=== PATIENT | female | born 1990 | race Caucasian/White ===

== ENCOUNTER 2024-03-16 07:06 | Outpatient (CLI) | payer BC, SELFPAY ==
--- NOTE | 2024-03-16 07:15 | US_ITS ---
Patient: ROSELINE CANNON Facility:?[facility] Patient ID:?[id number] Site Patient ID:?[id number]. Site :?1990 Study:?US-OB Pelvis DATING AND VIABILITY-03/16/2024 7:46:09 AM Ordering Physician:SHADE FISCHER Final Report: INDICATION: First trimester scan, establish dates. COMPARISON: None. TECHNIQUE: Real-time hylton-scale imaging of the pelvis was performed. FINDINGS: Sonographic imaging demonstrates a single living intrauterine gestation. The embryo demonstrates a regular cardiac rate measuring 171 beats per minute. The embryo`s crown-rump length measurement of 2.7 cm corresponds to a gestational age of 9 weeks 3 days with a sonographic due date of 10/16/2024. The yolk sac is upper limits of normal measuring 5.7 millimeters. There are no gross abnormalities noted within the embryo at this early state of development. The gestational sac has a normal appearance. There is no evidence of a perigestational hemorrhage. The amount of fluid within the sac appears appropriate for gestational age. The cervix is closed. Lower uterine segment uterine fibroid is present measuring 2.1 x 1.5 x 1.9 cm. Corpus luteal cyst left ovary. Normal right ovary. There are no suspicious fluid collections noted in the cul-de-sac. IMPRESSION: Single living intrauterine with sonographic gestational age 9 weeks 3 days and sonographic due date of 10/16/2024. The yolk sac measures 5.7 millimeters. Short-term follow-up could be considered. Lower uterine segment uterine fibroid measuring 2.1 cm. Dictated by Jan Jeffries MD @ 03/16/2024 9:06:09 AM Signed by:?Jan Jeffries MD @03/16/2024 9:06:09 AM (Electronic Signature)
== END 2024-03-16 07:07 | disposition home or self-care (01) ==
LOC: US 07:09
PROVIDERS: PCP Obstetrics & Gynecology; Visit Provider Advanced Practice Midwife
DX: Z34.91 Encounter for supervision of normal pregnancy, unspecified, first trimester (principal); O34.11 Maternal care for benign tumor of corpus uteri, first trimester; Z3A.09 9 weeks gestation of pregnancy
CPT/HCPCS: 76817; 86592; 86703; 86704; 86706; 86762; 86787; 86803; 86850; 86900; 86901; 87086; 87340

== ENCOUNTER 2024-04-04 13:56 | Outpatient (CLI) | payer BC, SELFPAY ==
--- NOTE | 2024-04-04 14:00 | US_ITS ---
Patient: ROSELINE CANNON Facility:?[facility] Patient ID:?[id number] Site Patient ID:?[id number]. Site :?1990 Study:?US-OB Pelvis OB <14wks-04/04/2024 3:01:27 PM Ordering Physician:?Brenna De La Rosa Final Report: INDICATION: : History of enlarged yolk sac. Confirm viability and dates TECHNIQUE: Transabdominal scanning was performed. COMPARISON: 03/16/2024 FINDINGS: There is a living IUP with gestational age of 11 weeks 6 days by LMP and 12 weeks 4 days by today`s crown-rump length. EDC based on LMP is 10/18/2024. The embryonic heart rate is measured at 167 beats per minute. The placenta is not yet formed. No subchorionic hemorrhage is evident. The ovaries are normal is size and shape. The right ovary measures 2.5 x 2.3 x 1.9 cm and the left 3.3 x 2.3 x 1.5 cm. No adnexal mass or free fluid is apparent. IMPRESSION: 1. Living IUP with gestational age of 11 weeks 6 days by LMP and 12 weeks 4 days by today`s crown-rump length. EDC based on LMP is 10/18/2024. 2. No complication evident. Dictated by Joe Pedraza MD @ 04/05/2024 11:24:35 AM Signed by:?Joe Pedraza MD @04/05/2024 11:24:35 AM (Electronic Signature)
== END 2024-04-04 13:57 | disposition home or self-care (01) ==
LOC: US 13:56
PROVIDERS: Visit Provider Advanced Practice Midwife
DX: O41.8X10 Other specified disorders of amniotic fluid and membranes, first trimester, not applicable or unspecified (principal); Z3A.11 11 weeks gestation of pregnancy
CPT/HCPCS: 76801

== ENCOUNTER 2024-05-04 09:26 | Outpatient (CLI) | payer BC, SELFPAY ==
--- NOTE | 2024-05-04 09:30 | CRLHL7_ITS ---
For Patients: As a result of the Century Cures Act, medical imaging exams and procedure reports are released immediately into your electronic medical record. You may view this report before your referring provider. If you have questions, please contact your health care provider. Indication: No heart tones. Technique: Sonography of the pelvis was performed. The study was performed transabdominally. Comparison: April 04, 2024 Findings: A living was documented April 04 11/30/2023 at 12 weeks and 4 days. On the current study, there is an irregular gestational sac. A non living fetus is identified within the uterus. No hemorrhage identified. The os appears to be closed as visualized. The placenta is posterior Current biometry is 14 weeks and 1 day Impression: A non living intrauterine fetus is identified. Measurements are at 14 weeks and 1 day. Dictated by Cullen Arango MD @ 05/04/2024 10:02:41 AM (Electronically Signed)
== END 2024-05-04 09:27 | disposition home or self-care (01) ==
LOC: US 09:26
PROVIDERS: Visit Provider Advanced Practice Midwife
DX: O36.8310 Maternal care for abnormalities of the fetal heart rate or rhythm, first trimester, not applicable or unspecified (principal); O02.1 Missed abortion
CPT/HCPCS: 76815

== ENCOUNTER 2024-05-05 12:54 | Inpatient (IN) | payer BC, SELFPAY ==
[2024-05-05] VITALS (7 sets, daily range): BP systolic 103–134; BP diastolic 56–72; PULSE 72–90; RESP 12–16; TEMP 36.9–37.2; O2SAT 100; BMI 29.7
--- NOTE | 2024-05-05 13:34 | PM.OBHPAP1 ---
OB - H&P; HPI Antepartum History of Present Illness Date Seen: 05/05/24 Chief complaint: Maternity Narrative: Sravanthi Rowland is a 33 year old at 16 2/7 weeks gestation by LMP consistent with 1st trimester US who presents for intrauterine demise diagnosed in clinic yesterday. She is supported today by her , Colby. Sravanthi presented for her routine obstetrical appointments and FHR were not found by doppler. She has not had any bleeding or cramping in the last few weeks. Patient was sent for formal ultrasound where radiology reported no heart tones were identified. Patient previously had two 1st trimester US where fetus was reported as viable with cardiac activity present. Her first ultrasound showed a slightly enlarged yolk sak, however a follow-up ultrasound showed normal findings. Yesterday's radiology report estimates size consistent with 14 weeks 1 day. No identifiable abnormalities noted on ultrasound. These findings were discussed with the patient yesterday by ORLANDO Duran. Options were reviewed with her at this time of IOL or D&E procedure. She elected to go home to discuss further with her partner but had set up an IOL for today. She called this morning wanting to review her options and how an IOL would work. This was reviewed with her via telephone including risks/benefits. She elected to proceed with IOL today. She had to find care for her older children then arrived earlier this afternoon. We discussed using cytotec for IOL due to being less than 28 weeks. She had some questions regarding previous c/s and use of cytotec. Discussed that cytotec at the gestation less than 28 weeks for 2nd trimester loss is consider a safe option with risk of uterine rupture extremely low. Discussed labs to determine possible etiology of IUFD with patient and spouse. These include TSH, Free T4, toxoplasmosis, rubella, CMV, herpes serology, chromosome/cytology on patient, Kleihauer Betke, and listeria. Reviewed options for pain management during this process. She is undecided but very nervous about pain management and epidural. She is aware she has multiple options if she desires. Sravanthi's past medical, surgical, social and family history was reviewed. Specific Issues/Plans : Colby -AMA, age 34 at -level II wants -81 mg aspirin at 12 weeks -Hx of anxiety -stable at NOB -did not do well w/ citalopram previously. Stopped medications about 6 years ago. Has also previously done therapy -Lower uterine segment uterine fibroid measuring 2.1 cm noted in viability u/s. Yolk sac mildly enlarged also, has follow up u/s scheduled. Follow up: Yolk sac upper limits of normal -Hx of w/ twins, 1 successful . Desires another -consult with OB: -36 wk Growth u/s: -Hx of GDM with twin -Needs PP pap. Last pap 2021, Ascus, HPV neg ?? History of Present Dating criteria: based on LMP care: good care Ultrasounds: abnormal US findings Abnormal ultrasound findings: 03/16/2024 IMPRESSION: Single living intrauterine with sonographic gestational age 9 weeks 3 days and sonographic due date of 10/16/2024. The yolk sac measures 5.7 millimeters. Short-term follow-up could be considered. Lower uterine segment uterine fibroid measuring 2.1 cm. Dictated by Jan Jeffries MD @ 03/16/2024 9:06:09 AM 04/04/2024 IMPRESSION: 1. Living IUP with gestational age of 11 weeks 6 days by LMP and 12 weeks 4 days by today`s crown-rump length. EDC based on LMP is 10/18/2024. 2. No complication evident. 05/04/2024 Findings: A living was documented April 04 11/30/2023 at 12 weeks and 4 days. On the current study, there is an irregular gestational sac. A non living fetus is identified within the uterus. No hemorrhage identified. The os appears to be closed as visualized. The placenta is posterior Current biometry is 14 weeks and 1 day Impression: A non living intrauterine fetus is identified. Measurements are at 14 weeks and 1 day. Dictated by Cullen Arango MD @ 05/04/2024 10:02:41 AM Medical complications: none Labs Blood type: A (+) positive Review of Systems Status of ROS: Reports: 10 or more systems reviewed and unremarkable except as noted in History and below Meds Home Medications and Allergies Home Medications ?Medication ?Instructions ?Recorded ?Confirmed ?Type vits no.126-ferrous fum 1 tab PO DAILY 04/04/24 05/05/24 History 28 mg iron-folic acid 800 mcg tablet (Classic ) aspirin 81 mg chewable tablet 81 mg PO QDAY 05/04/24 05/05/24 History Allergies Allergy/AdvReac Type Severity Reaction Status Date / Time citalopram AdvReac Unknown Unknown Verified 05/05/24 15:30 OB - H&P: Exam Physical Exam: Vital signs: Pulse BP 90 134/72 05/05/24 13:34 05/05/24 13:34 Narrative: Vitals Reviewed Constitutional:? Alert and oriented x3. Psych: Mood appropriate, tearful HEENT:? Normocephalic, atraumatic Neck:? Supple Lungs:? Clear to auscultation bilaterally Heart:? Regular rate and rhythm, no murmur, rub or gallop Abdomen:? Soft, nontender, and gravid. Fundal height 15 cm. Extremities:? No edema or erythema Cervix: 0 cm, cytotec placed with exam OB - A/P Antepartum Assessment and Plan (1) demise before 20 weeks with retention of fetus: Status: Acute Plan ASSESSMENT:? 33 at 16.2 weeks gestation? IUFD, measuring 14.1 weeks gestation ? PLAN:? 1. Cytotec 400 mg vaginally every 4 hours. 2. Candidate for analgesia of choice if desired.?? 3. Laboratory testing to determine possible etiology ordered as patient desired. 4. Offered autopsy and genetic testing of the baby to patient: Undecided 5. Plan pitocin after delivery to help with delivery of placenta and hemorrhage risk. 6. Dr. Lawson notified and aware of plan.
[2024-05-05] MEDS: miSOPROStoL 200 MCG TABLET 400 MCG VAGINAL ×3 (14:58→21:12)
[2024-05-05 15:38] LABS: Basophils Percent Auto 0.2 % (0.0-3.0); Hematocrit 37.2 % (33.0-51.0); Hemoglobin* 12.7 gm/dL (12.0-16.0); Immature Granulocytes Pct Auto 0.8 %; Lymphocytes Percent Auto 19.5 % (20-44); Mean Corpuscular HGB Conc 34 gm/dL (32-36); Mean Corpuscular Hemoglobin 30 pg (26-34); Mean Corpuscular Volume 88 fL (80-100); Monocytes Percent Auto 5.9 % (0.0-11.0); Neutrophils Percent Auto 72.6 % (42.0-72.0); Platelet Count* 259 K/uL (140-440); RDW Coefficient of Variation % 12.2 % (11.5-15.5); Red Blood Count 4.25 m/uL (4.00-5.20); White Blood Count* 11.71 K/uL (4.50-11.00)
[2024-05-05 15:41] LABS: Slide Review Reflex No
[2024-05-05 15:49] LABS: Amphetamine Screen Urine Negative (Negative); Barbiturate Screen Urine Negative (Negative); Benzodiazepines Screen Urine Negative (Negative); Cannabinoid Screen Urine Negative (Negative); Cocaine Screen Urine Negative (Negative); Methadone Screen Urine Negative (Negative); Methamphetamines Screen Urine Negative (Negative); Opiate Screen Urine Negative (Negative); Oxycodone Screen Urine Negative (Negative); Phencyclidine Screen Urine Negative (Negative); Tricyclic Antidepressant Urine Negative (Negative)
[2024-05-05 15:52] LABS: Fibrinogen* 439 mg/dL (200-450)
[2024-05-05 15:53] LABS: Partial Thromboplastin Time* 26 Seconds (23-33); Prothrombin Time 12.7 Seconds
[2024-05-05 16:30] LABS: Free T4 Free Thyroxine* 0.81 ng/dL (0.70-1.85)
--- NOTE | 2024-05-05 21:15 | PM.OBPNL ---
Subjective Date Seen: 05/05/24 Narrative: Sravanthi is a here for IOL for IUFD diagnosed yesterday in clinic. She has received 3 doses of cytotec and is starting to feel cramping. She is supported by her partner, Colby. She does not desire anything for pain management at this time. Objective Vital Signs: Last Vital Signs Temp 99 F 05/05/24 19:02 Pulse 73 05/05/24 21:15 Resp 16 05/05/24 19:02 BP 113/66 05/05/24 21:15 Pulse Ox 100 05/05/24 13:35 Plan Plan: ASSESSMENT:? 33 at 16.2 weeks gestation? IUFD, measuring 14.1 weeks gestation ? PLAN:? 1. Continue cytotec 400 mg vaginally every 4 hours. 2. Candidate for analgesia of choice if desired.?? 3. Laboratory testing to determine possible etiology ordered as patient desired. 4. Offered autopsy and genetic testing of the baby to patient: Undecided 5. Plan pitocin after delivery to help with delivery of placenta and hemorrhage risk. 6. Dr. Lawson aware of plan.
[2024-05-05] MEDS: OXYTOCIN 30 unit/500 ML in NS 30 UNIT/500 ML BAG 325 UNIT IVPB (22:40)
[2024-05-06] VITALS (21 sets, daily range): BP systolic 82–133; BP diastolic 53–83; PULSE 73–128; RESP 12–16; TEMP 36.1–37.2; O2SAT 96–99
--- NOTE | 2024-05-06 00:50 | W.PM.OBVAGDE ---
OB Procedure Vag Delivery Mother Details Mother Details: Sravanthi is a 33 year-old, 3, Para 2, admitted on 05/05/24 at 16 3/7 weeks gestation. : 3 Para: 2 Weeks Gestation: 16.2 Admission Date: 05/05/24 Additional Details Amniotic Membrane Status: SROM Amniotic Membrane Rupture Date: 05/06/24 Amniotic Membrane Rupture Time: 22:21 Amniotic Membrane Fluid Description: Clear Analgesia/Anesthesia Type: None Waterbirth: No Pitcoin: Yes (AMTSL) Intrapartal Events: Labor Induction (for IUFD at 16.2 weeks) Delivery Details Delivery Date: 05/05/24 Delivery Time: 22:21 Route of delivery: Infant Gender: Male Viability: Miscarriage (IUP<20 wks) Delivery Details: Sravanthi was admitted for induction of labor following diagnosis of demise at 16.1 weeks gestation. She received 3 doses of 400 mcg vaginal cytotec. After her 3rd dose, she was up to the bathroom and felt pressure and caught baby in her hand. Provider was called to room and arrived just after delivery. Fetus was held and very thin cord was identified and cut. Baby was passed to RN while mom was assisted to the bed. Initial assessment of fetus shows cord wrapped around neck and both shoulder/arms to a point where the cord is as thin as string. She had intense cramping immediately after delivery but placenta was not at a deliverable stage. Umbilical cord was very thin, not able to grasp to help guide placenta delivery. Sravanthi requested baby be placed on her chest and Colby was able to sit by her. Pitocin IV was given. After about 1 hour she felt increased cramping and pressure and requested a cervical exam to check on placenta. It was palpated just inside the cervix but was not able to be teased from the cervix. The option was given to her to wait and reassess in 1-2 hours. After about an hours time, she requested another check. Again, palpated in the cervix but seemed more easily grasped, however unable to deliver it. Decision made to wait and reassess. Dr Lawson was consulted to discuss further options including another cytotec dose versus speculum exam and ring to try to remove placenta manually. These were discussed with patient and she desired attempt at manual removal. Speculum was placed and placental tissue was present in the vaginal vault. Attempted 4x to grasp placenta inside uterus but unable to deliver. Small fractions of placental tissue were removed. Recommended consult with Dr. Lawson who could bedside US and provide surgical management if needed. Patient was hesitant but agreed. Dr. Lawson was able to manually remove a larger section of placenta tissue under ultrasound guidance but cannot confirm complete removal and recommendation was made to do under anesthesia in the OR. See Dr. Lawson's consult note and procedure note for further details. EBL of approximately 450 at this time prior to OR. Findings of baby after delivery were discussed with patient. They then desired not to proceed with cytogenetics or culture. Placenta pieces still to be sent to pathology. 1 Minute Interval Total Score: 0 5 Minute Interval Total Score: 0 Additional Details Placental Delivery Description: Manual Removal (D&C in OR by Dr. Lawson) Blood Loss: 450 Blood Loss Measurement Type: EBL Event Summary Status: Mother and infant were stable after delivery. Disposition: floor
--- NOTE | 2024-05-06 02:04 | P.OBCN_ITS ---
OB - CN: HPI Date of Consult Time Seen by Provider: 02:04 Date Seen: 05/06/24 Consult date: 05/06/24 Requesting Physician: Barbara Yoder CNM Primary Care Provider: Not a Local Provider Consult Narrative Narrative: The patient is a 33 year old at 16.2 weeks gestation that was admitted to the [facility] on 05/05/24 for induction of labor for demise. She underwent induction of labor with misoprostol protocol and had a spontaneous vaginal delivery of the fetus. Please see Barbara Yoder CNM note for full details. I was consult for possible retained placenta as it has not spontaneously delivered coming up on 4 hours after delivery. SVE and BSUS reveals part of the placenta protruding through the cervical os. Sravanthi would like me to try a manual extraction bedside. She had declined any kind of pain control up to this point and wants to avoid surgical management. Discussed with Sravanthi that I can try applying traction on the placental part that is already protruding through the uterus. However, if the placenta does not deliver intact, I would still recommend suction D&C. Ring forceps was placed on the presenting placental part, steady traction and twisting motion applied. Large part of the placenta delivered with great pain relief to the patient. Unfortunately, placenta did not delivery intact and BSUS showed small amount of placenta near the uterine fundus. While Sravanthi is distressed with my recommendation of going back to the OR to perform a suction D&C, I do think it is the safest option. Risks/benefits/alternatives were discussed with her. At this point, I do not think it joel to wait any longer for surgical management due to increased risk of infection and bleeding. Given that the placenta is not intact, we need to do a clean sweep of the uterus. After counseling by myself and ORLANDO Yoder, we are in agreement that we've exhausted all of our options and would like to proceed with surgical management for the removal of retained placenta. Sravanthi DECLINED cytogenetics. Consent signed and OR team notified. Repeat Hgb/plt: 12.7/259 EBL prior to OR: 400 cc History History 3 Elective abortions 0 Para 2 Spontaneous abortions 0 Hx # Term Pregnancies 2 Ectopic pregnancies Hx # Pregnancies 0 Multiple births 1 Number of Living Children 3 Past Pregnancies Del. Date GA/Weeks Outcome Route wt Inf Gender Labor Lgth Anesthesia Location Provider Compli 09/12/13 38 live - full term low transverse 6 lb 6 oz [place] [facility] 09/12/13 38 live - full term low transverse 6 lb 12 oz Male 07/28/17 41 live - full term 8 lb 5 oz Female Delivery Date: 09/12/13 Last Updated by: Brenna De La Rosa CNM Twins Delivery Date: 09/12/13 Last Updated by: Brenna De La Rosa CNM Twins Labs Blood type: A (+) positive GBS status: unknown OB Labs: Lab Assessment Start: 05/05/24 13:27 Freq: ONCE Status: Complete Protocol: PC.OBGBS Activity Type Activity Date Activity User E-sign Co-sign Detail Recorded Client Recorded Date Recorded By Document 05/05/24 15:56 WK [id number] 05/05/24 15:57 WK 05/05/24 15:56 Lab Assessment GBS Status unknown GBS Additional Criteria None No Treatment Needed OK Are Labs Available Yes Maternal Blood Type A Maternal RH Factor Positive Evaluate Maternal Rubella Immune Status Immune Hepatitis B Surface Antigen Negative Maternal HIV Status Negative Maternal Syphillis (RPR) Status Negative [facility] Medical History History of dysplasia of vulva ?Z87.412 - Personal history of vulvar dysplasia (ICD-10) History of tobacco use ?Z87.891 - Personal history of nicotine dependence (ICD-10) History of vaginal after ?Z98.891 - History of uterine scar from previous surgery (ICD-10) Surgical History History of biopsy ?Z98.890 - Other specified postprocedural states (ICD-10) History of section (09/12/13) ?Z98.891 - History of uterine scar from previous surgery (ICD-10) Family History Mother Depression High cholesterol Father Diabetes Other Anxiety Social History (Updated 05/05/24 @ 15:54 by Barbara Yoder CNM) Narrative: SOCIAL? ? Education: Associates? ? 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 ? Partner: Colby, , heavy screen printing equipment setter? ? Lives with: Colby, 3 kids? ? Pets: dog, cat? ? Abuse: Denies past Safe at home with current partner ? ? Special Diet: Denies? ? Ok with a blood transfusion: yes? ? Culture or orthodoxy beliefs: denies? RISK FACTORS? ? Exercise Times/wk: running and biking. ? ? Depression/Anxiety: anxiety? ? Previous Treatments: citalopram, which she had a reaction to. Did take other medication, but hasn't in 6 years. Stable at this time. Therapy: has also done. Seat Belt Use: Routinely ? Smoking: Denies present? ?Smoked previously. 5 years, 1/2 a pack, Stopped about 10 years ago Alcohol/day: Denies while ? ? Caffeine: 1 cup a day? ? Drug Use: Denies past/present? ? What is your current living situation?: I presently have a place to live Problems where you live: no known problems In the past 12 months, utilities in danger of being shut off: no In past 12 months, lack of transportation kept you from medical appts, meetings, work, or getting things needed for daily living: no In the past 12 mos, have been you worried that your food would run out before you had money to buy more?: never true In the past 12 mos, the food you bought just didn't last and you didn't have money to buy more?: declined to answer Smoking Status: Former smoker How often does anyone, including family, friends and others, physically hurt you : never How often does anyone, including family, friends and others, insult or talk down to you: never How often does anyone, including family, friends and others, threaten you with harm: never How often does anyone, including family, friends and others, scream or curse at you: never Little interest or pleasure in doing things: not at all Feeling down, depressed, or hopeless: not at all Meds Home Medications and Allergies Home Medications ?Medication ?Instructions ?Recorded ?Confirmed ?Type vits no.126-ferrous fum 1 tab PO DAILY 04/04/24 05/05/24 History 28 mg iron-folic acid 800 mcg tablet (Classic ) aspirin 81 mg chewable tablet 81 mg PO QDAY 05/04/24 05/05/24 History Allergies Allergy/AdvReac Type Severity Reaction Status Date / Time citalopram AdvReac Unknown Unknown Verified 05/05/24 15:30 OB - H&P: Exam Physical Exam: Vital signs: Temp Pulse Resp BP Pulse Ox 98.4 F 91 12 124/71 100 05/06/24 00:27 05/06/24 00:27 05/06/24 00:27 05/06/24 00:27 05/05/24 13:35 OB - Results Labs Labs: Short CBC 05/05/24 Range/Units 15:25 WBC 11.71 H (4.50-11.00) K/uL Hgb 12.7 (12.0-16.0) gm/dL Hct 37.2 (33.0-51.0) % Plt Count 259 (140-440) K/uL OB - CN: A/P Assessment and Plan (1) demise before 20 weeks with retention of fetus: Status: Acute
[2024-05-06] MEDS: DOXYCYCLINE HYCLATE 200 MG in 0.9 % SODIUM CHLORIDE 250 ml 250 ML 250 MG IVPB (02:33)
[2024-05-06] MEDS: LACTATED RINGERS 1000 ML 1,000 ML 125 ML IV (02:36)
--- NOTE | 2024-05-06 02:58 | P.PCNOB_ITS ---
Procedure Pre-op/Post-op diagnoses: Pre-Op/Post-Op Diagnoses Operation Date: 05/06/24 02:45 <No data on this case meets the specified criteria> Procedure: Procedures Operation Date: 05/06/24 02:45 Actual Procedure Side Surgeon p Suction Dilatation & Curettage Not Applicable Valentine Lawson MD Narrative: DILATION AND CURETTAGE PREOPERATIVE DIAGNOSIS: 1. demise s/p spontaneous vaginal delivery 2. Retained placenta POSTOPERATIVE DIAGNOSIS: Same PROCEDURE: 1. EUA 2. Ultrasound guided Suction curettage SURGEON: Valentine Lawson MD ANESTHESIA: General FINDINGS: 1. A 10 size mobile midline uterus, no adnexal masses on EUA 2. Normal external genitalia. Cervix dilated to 2 cm FLUIDS: 400 cc QUANTITATIVE BLOOD LOSS: 150 cc URINE OUTPUT: 20 cc COMPLICATIONS: Intermittent atony, responsive to methergine 0.2 mg x 1. 1g of TXA given. PREOP ANTIBIOTIC: 200 mg of doxycycline SPECIMEN: 1. Retained placenta INDICATIONS: Sravanthi is a 33 yo , with demise s/p spontaneous vaginal delivery of fetus, complicated by retained placenta. DESCRIPTION OF PROCEDURE: The patient was taken to the operating room where general anesthesia was a dministered. She was prepared and draped in normal sterile fashion in the dorsal lithotomy position in yellow fin stirrups, taking care to avoid lower extremity hyperextension, hyperflexion or compression. A surgical time-out was performed with the entire operative staff per protocol. Perioperative antibiotics were given and pneumoboots were placed and activated. EUA revealed the above findings. Bladder was drained with a straight cath. A speculum was placed in the patient's vagina and a ring forceps was placed on the anterior lip of the cervix. Cervical dilation was not needed to accommodate the 12 suction curettage. The suction curettage was then inserted under direct visualization. The uterus was then gently suction curetted and rotated to clear the uterus of products of conception. This was performed until a gritty texture was noted and the uterus was cleared of all remaining retained placenta. Sharp curettage performed x 3. There was minimal bleeding noted after the curettage was removed. Bedside ultrasound showed homogenous endometrial strip measuring <2cm in the transverse and sagittal views. The ring forceps was removed from the anterior lip of the cervix and excellent hemostasis was noted. All instruments were removed. Debrief performed per protocol and specimen reviewed. Specimen was sent to pathology. The patient tolerated the procedure well. Sponge, lap and needle counts were correct x 2. The patient was taken to the recovery room in stable condition.
--- NOTE | 2024-05-06 03:52 | W.ANESCHARGE ---
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
--- NOTE | 2024-05-06 10:09 | P.DS_ITS ---
DS: Providers Provider Date Seen: 05/06/24 Date of admission: 05/05/24 12:54 Primary care physician: Not a Local Provider Admitting Clinician: Barbara Yoder CNM Consults: 05/06/24 02:08 Consult to Physician [CONS] Routine Comment: Consulting Provider: Valentine Lawson Has provider been notified: Yes Attending Physician on discharge: Adam Duran CNM Date of Discharge: 05/06/24 DS: Diagnosis Discharge Diagnosis (1) demise before 20 weeks with retention of fetus: Status: Acute Exam Narrative: Exam Narrative: VSS, afebrile GENERAL APPEARANCE: ?normal affect, alert, no distress MOOD: ?appropriate HEENT: normocephalic, neck supple, full ROM CHEST: ?Symmetrical chest wall movement. ?Normal respiratory effort. ?Clear to auscultation HEART: ?regular rate and rhythm ABDOMEN: ?soft, non-tender. Uterine fundus is firm, Midline and is appropriate for the stage of recovery. ?Bowel sounds present. EXTREMITIES: ?normal and no edema Const: Vital Signs, click to edit/add: Vital Signs - 24 hr 05/05/24 13:34 05/05/24 13:35 05/05/24 13:35 Temperature 98.5 F Pulse Rate 90 Pulse Rate [Pulse Oximeter] Respiratory Rate 16 Blood Pressure 134/72 Blood Pressure [Ri ght Arm] Pulse Oximetry [facility] 05[facility] 15:03 05/05/24 15:04 05/05/24 17:01 Temperature 98.6 F Pulse Rate 81 72 Pulse Rate [Pulse Oximeter] Respiratory Rate 16 Blood Pressure 103/56 L 122/64 Blood Pressure [Ri ght Arm] Pulse Oximetry [facility] 05/05/24 17:01 05/05/24 19:02 05/05/24 19:02 Temperature 99 F 99 F Pulse Rate 87 Pulse Rate [Pulse Oximeter] Respiratory Rate 16 16 Blood Pressure 109/67 Blood Pressure [Ri ght Arm] Pulse Oximetry [facility] 05/05/24 21:15 05/05/24 21:15 05/06/24 00:26 Temperature 99 F Pulse Rate 73 Pulse Rate [Pulse Oximeter] 91 Respiratory Rate 12 Blood Pressure 113/66 Blood Pressure [Ri ght Arm] 124/71 Pulse Oximetry [facility] 05/06/24 00:27 05/06/24 00:27 05/06/24 02:46 Temperature 98.4 F Pulse Rate 91 101 H Pulse Rate [Pulse Oximeter] Respiratory Rate 12 Blood Pressure 124/71 110/67 Blood Pressure [Ri ght Arm] Pulse Oximetry Oxygen Delivery Me [facility]od 05/06/24 02:46 05/06/24 03:50 05/06/24 03:55 Temperature 99 F 97 F L Pulse Rate 114 H 110 H Pulse Rate [Pulse Oximeter] Respiratory Rate 12 16 16 Blood Pressure 120/77 116/71 Blood Pressure [Ri ght Arm] Pulse Oximetry 98 98 97 Oxygen Delivery Me od Room Air Room Air 05/06/24 04:00 05/06/24 04:05 05/06/24 04:10 Temperature 97 F L Pulse Rate 113 H 128 H 100 Pulse Rate [Pulse Oximeter] Respiratory Rate 14 14 12 Blood Pressure 122/83 133/82 109/69 Blood Pressure [Ri ght Arm] Pulse Oximetry 98 98 98 [facility] Room Air 05/06/24 04:27 05/06/24 04:27 05/06/24 04:45 Temperature 98.6 F Pulse Rate 94 73 Pulse Rate [Pulse Oximeter] 94 Respiratory Rate 12 12 Blood Pressure 113/80 101/68 Blood Pressure [Ri ght Arm] 113/80 Pulse Oximetry 98 98 [facility] Air 05/06/24 05:10 05/06/24 05:25 05/06/24 05:56 Temperature Pulse Rate 78 86 80 Pulse Rate [Pulse Oximeter] Respiratory Rate 12 12 12 Blood Pressure 100/67 94/65 82/53 L Blood Pressure [Ri ght Arm] Pulse Oximetry 97 97 98 Oxygen Delivery Me thod 05/06/24 06:09 05/06/24 06:26 05/06/24 07:09 Temperature Pulse Rate 84 89 77 Pulse Rate [Pulse Oximeter] Respiratory Rate 12 12 12 Blood Pressure 94/64 82/54 L 103/67 Blood Pressure [Ri ght Arm] Pulse Oximetry 97 99 96 Oxygen Delivery Me thod 05/06/24 07:12 05/06/24 07:58 05/06/24 07:58 Temperature 98.5 F 98.5 F Pulse Rate 80 Pulse Rate [Pulse Oximeter] 77 80 Respiratory Rate 12 16 16 Blood Pressure 107/69 Blood Pressure [Ri ght Arm] 103/67 107/69 Pulse Oximetry 96 97 97 Oxygen Delivery Me thod Room Air Room Air 05/06/24 09:18 Temperature 97.9 F Pulse Rate Pulse Rate [Pulse Oximeter] 78 Respiratory Rate 16 Blood Pressure Blood Pressure [Ri ght Arm] 107/67 Pulse Oximetry 98 Oxygen Delivery Me thod Room Air Documenting provider has reviewed patient's vital signs: yes OB - DS: Summary Hospital Course Hospital Course: The patient is a 33 year old G 3 P 2 at 16.2 weeks gestation that was admitted to the Center on 05/05/24 for induction for demise found at 16.0 weeks. She had an uncomplicated vaginal delivery followed by a D&C for retained placental parts. She delivered a non-viable male . the patient has done well. She is appropriately grieving, her is here for support. They would like to see [facility] worker before leaving today. They should be arriving soon. Peripartum Data Infant delivery method: Vaginal Laceration description: None Procedures: Procedures Operation Date: 05/06/24 02:45 Actual Procedure Side Surgeon p EXAM UNDER ANESTHESIA, Suction Dilatation & Curettage Not Applicable Valentinejemima Lawson MD complications: retained placenta Paulina Gender: Male Discharge Plan: loss Status at Discharge Functional status at discharge: independent ambulation Overall status at discharge: patient is progressing back to baseline Time Spent with Patient Time attestation: Total time spent providing and/or coordinating discharge services: Time spent: Less than 30 minutes Discharge Plan Discharge Disposition: Home, Self-Care Date of Admission: 05/05/24 12:54 Attending Provider on Discharge: Adam Duran Consulting Providers: Valentine Lawson Primary Care Provider: Provider,Not a Local Condition: Stable Anticipated Discharge Date/Time: 05/06/24 12:00 Discharge Medications: New acetaminophen 500 mg Tablet 1,000 mg PO Q6H PRN (Reason: pain/fever) Qty: 0 0RF ibuprofen 600 mg tablet 600 mg PO Q6H PRNQty: 90 0RF Discontinued Classic 28 mg iron- 800 mcg tablet 1 tab PO DAILY aspirin 81 mg tablet,chewable 81 mg PO QDAY Discharge Orders: Discharge Order (Routine); Ordered 05/06/24 Ordered By: Adam Duran Patient Education: Dilation and Curettage (DC) Additional Instructions: Discharge instructions were reviewed with the patient including signs and symptoms of infection and home going medications Nothing vaginally for 6 weeks: no tampons or intercourse Off Work or School for weeks Symptoms to report to doctor: * Bleeding that saturates more than one pad per hour * Passing clots larger than the size of a golf ball * Pain not relieved by prescribed medication * Fever above 100.4 degrees Fahrenheit * A foul vaginal odor * Difficulty in emotions, mood, and functions * Thoughts of hurting yourself and/or * Painful, reddened area in your breast * Any drainage, redness, or tenderness in your IV/epidural site * Severe headache that doesn't improve after taking medications * Changes in vision, including temporary loss of vision, blurred vision, and/or light sensitivity * Upper abdominal pain (usually under ribs on the right side) * Decrease in urination or painful, frequent urinating * Chest pain * Shortness of breath * Tenderness or pain with redness and/swelling in the calf(s) of your leg 2-week visit: review control options and screen for anxiety/depression. Activity Level: Activity as Tolerated Discharge Diet: Regular Follow Up Appointments: Provider,Not a Local [Primary Care Provider] - [facility] [Provider Group] Forms: [email or web address] Info Instructions
[2024-05-07 14:36] LABS: Toxoplasma gondii Ab, IgM <3.0 AU/mL (<=7.9)
[2024-05-07 14:44] LABS: Toxoplasma gondii Ab, IgG <3.0 IU/mL (<=8.8)
[2024-05-07 14:50] LABS: CMV Antibody IgG <0.20 U/mL (<=0.70); CMV Antibody IgM <8.0 AU/mL (<=29.9)
[2024-05-07 18:59] LABS: Rapid Plasma Reagin (RPR) Non Reactive (Non Reactive)
[2024-05-08 00:20] LABS: B2Glycoprotein 1, IgG Antibody <10 SGU (<=20); B2Glycoprotein 1, IgM Antibody <10 SMU (<=20)
[2024-05-08 18:26] LABS: Cardiolipin Antibody IgA <10 APL (<=11); Cardiolipin Antibody IgG <10 GPL (<=14); Cardiolipin Antibody IgM <10 MPL (<=12)
[2024-05-09 09:53] LABS: Parvovirus B19 Antibody IgG 3.46 IV (<=0.90); Parvovirus B19 Antibody IgM 0.13 IV (<=0.90)
== END 2024-05-06 19:25 | disposition home or self-care (01) | DRG 544 ==
PROVIDERS: Obstetrics & Gynecology; Admitting Provider Advanced Practice Midwife; Visit Provider Advanced Practice Midwife
DX: O02.1 Missed abortion (principal); O73.0 Retained placenta without hemorrhage; O34.13 Maternal care for benign tumor of corpus uteri, third trimester; D25.9 Leiomyoma of uterus, unspecified; Z3A.16 16 weeks gestation of pregnancy
CPT/HCPCS: 00940; 36415; 59200; 80306; 84439; 84443; 85025; 85384; 85460; 85610; 85730; 86146; 86147; 86317; 86592; 86644; 86645; 86747; 86778; 86850; 86870; 86900; 86901; 86905; 86906; 87070; 88184; 88305; 99140; A9270; J0330; J1100; J1885; J2210; J2250; J2405; J2704; J3010; J7050; J7120

== ENCOUNTER 2024-05-19 13:56 | Outpatient (CLI) | payer BC, SELFPAY | END 2024-05-19 13:57 | disposition home or self-care (01) | LOC: NFLDREF 13:56 | PROVIDERS: Visit Provider Advanced Practice Midwife | DX: Z39.2 Encounter for routine postpartum follow-up (principal) | CPT/HCPCS: 86850 ==

== ENCOUNTER 2025-09-06 11:58 | Outpatient (CLI) | payer BC, SELFPAY ==
--- NOTE | 2025-09-06 12:15 | CRLHL7_ITS ---
For Patients: As a result of the Cures Act, medical imaging exams and procedure reports are released immediately into your electronic medical record. You may view this report before your referring provider. If you have questions, please contact your health care provider. OB ULTRASOUND INDICATION: Dating and viability. TECHNIQUE: Real time grayscale imaging of the fetus was performed. Transabdominal. Transvaginal imaging was attempted but suboptimal due to vertical position to the probe. LMP: 07/03/2025. ANNELIESE by LMP: 04/09/2026. GA: 9 w, 2 d. Previous US: No. CRL: 2.3 cm. 9 w 0 d. ANNELIESE: 04/11/2026. FHR: 173 BPM. Gestational sac: 3.6 cm. Appears slightly small. Yolk sac: 5.3 mm. Appears within normal limits. Right ovary: N/V. Left ovary: 3.1 x 1.8 x 2.1 cm. CL. IMPRESSION: 1. Single living intrauterine measures 9 weeks 0 days with sonographic due date 04/11/2026. 2. Corpus luteal cyst left ovary. Non-visualization of the right ovary due to overlying bowel gas. Jan Jeffries M.D. Diagnostic Radiologist [email or web address] HAMIDA/tom santos/Dictated by: Jan Jeffries MD @ 09/06/2025 4:25:00 PM (Electronically Signed)
== END 2025-09-06 11:59 | disposition home or self-care (01) ==
LOC: US 11:59
PROVIDERS: Visit Provider Physician Assistant
DX: O09.521 Supervision of elderly multigravida, first trimester (principal); Z3A.09 9 weeks gestation of pregnancy
CPT/HCPCS: 76801; 76817; 83021; 86592; 86703; 86704; 86706; 86762; 86787; 86803; 86850; 86900; 86901; 87086; 87340; 87491; 87591; 87624; 88175

== ENCOUNTER 2025-09-27 13:23 | Outpatient (CLI) | payer BC, SELFPAY | END 2025-09-27 13:24 | disposition home or self-care (01) | LOC: NFLDREF 09-28 14:26 | PROVIDERS: Visit Provider Physician Assistant | DX: O09.521 Supervision of elderly multigravida, first trimester (principal) | CPT/HCPCS: 83020; 83021; 85660; 86592; 86703; 86704; 86706; 86762; 86787; 86803; 86850; 86900; 86901; 87086; 87340 ==

== ENCOUNTER 2025-10-04 14:54 | Outpatient (CLI) | payer BC, SELFPAY | END 2025-10-04 14:55 | disposition home or self-care (01) | PROVIDERS: Visit Provider Obstetrics & Gynecology | DX: O16.1 Unspecified maternal hypertension, first trimester (principal) | CPT/HCPCS: 82565; 82570; 84156; 84450; 84460; 84520 ==